=== PATIENT | male | born 1990 | race Caucasian/White ===

== ENCOUNTER 2017-03-27 15:27 | Emergency (ER) | payer OTHER ==
[~2017-03-27] VITALS: Wt 76.7 kg
[~2017-03-27 15:27] MED LIST: BENZ1TAB7 PO; MIRT-30 PO; RISP0.5T3 PO
[2017-03-27] MEDS ORDERED: morphine 4 MG/ML VIAL IM STA (16:18)
[2017-03-27] MEDS ORDERED: KETOROLAC 60 MG INJ IM STA (16:18)
[2017-03-27] MEDS ORDERED: BENZTROPINE 2 MG INJ IM ONE (17:00)
[2017-03-27] MEDS ORDERED: OLANZAPINE 5 MG TAB PO ONE (17:30)
[2017-03-27 18:07] VITALS: BP 129/79; PULSE 71; RESP 18
[2017-03-27] MEDS ORDERED: METH500T PO (18:13)
[2017-03-27] MEDS ORDERED: BENZ0.5T3 PO (18:13)
[2017-03-27] MEDS ORDERED: NAPR-688 PO (18:13)
--- NOTE | 2017-03-27 18:22 | ERD ---
ER Documentation Chief Complaint Chief Complaint spasms neck and arms today, denies vomiting, drug use HPI 26-year-old male presents emergency room with neck pain and spasm that began today. He is a coming by his father. Patient has a history of schizophrenia he did not bring the medication he is taking but is taking 1 medication. Denies any recent trauma to the area. States that this is happened before and it resolved on its own. He has no current thoughts of suicidal homicidal ideation. Is not hearing voices and he feels otherwise well. ROS All systems reviewed and are negative except as per history of present illness. Medications Home Meds Active Scripts Benztropine Mesylate* (Benztropine Mesylate*) 0.5 Mg Tablet, 0.5 MG PO TID for ANXIETY, #10 TAB Prov:BREANARUDY DO 03/27/17 Naproxen* (Naproxen*) 500 Mg Tablet, 500 MG PO BID, #14 TAB Prov:BREANARUDY DO 03/27/17 Methocarbamol* (Robaxin*) 500 Mg Tab, 500 MG PO Q8, #14 TAB Prov:BREANARUDY DO 03/27/17 Reported Medications Benztropine Mesylate* (Benztropine Mesylate*) 1 Mg Tablet, 1 MG PO BID, TAB 01/06/15 Mirtazapine* (Remeron*) 15 Mg Tab, 15 MG PO HS, TAB 01/06/15 Risperidone* (Risperidone*) 0.5 Mg Tablet, 0.5 MG PO QHS, TAB 01/06/15 Allergies Allergies: Coded Allergies: No Known Drug Allergies (Verified Allergy, Unknown, 01/06/15) PMhx/Soc Medical and Surgical Hx: pt denies Medical Hx, pt denies Surgical Hx History of Surgery: No Anesthesia Reaction: No Hx Neurological Disorder: No Hx Respiratory Disorders: No Hx Cardiac Disorders: No Hx Psychiatric Problems: Yes (unable to obtain, patient is a poor historian) Hx Miscellaneous Medical Probl: No Hx Alcohol Use: No Hx Substance Use: No Hx Tobacco Use: No Smoking Status: Never smoker Physical Exam Vitals Vital Signs Date Time Temp Pulse Resp B/P Pulse Ox O2 Delivery O2 Flow Rate FiO2 03/27/17 18:07 71 18 129/79 97 Room Air 03/27/17 15:35 97.6 77 18 135/81 97 Physical Exam Const: [] No acute distress Head: Atraumatic Eyes: Normal Conjunctiva ENT: Normal External Ears, Nose and Mouth. Neck: Full range of motion with only mild pain, right trapezius muscle spasm as well as right paraspinal muscle spasm, no deformities or midline tenderness. Skin: No petechiae or rashes Back: No midline or flank tenderness Ext: No cyanosis, or edema Neur: Awake and alert and oriented 3, no focal deficits, 5 out of 5 strength bilateral hands. Psych: Normal Mood and Affect Results 24 hrs Current Medications Medications (Trade) Dose Ordered Sig/Marlene Route PRN Reason Start Time Stop Time Status Last Admin Dose Admin Morphine Sulfate (morphine) 4 mg ONCE STAT IM 03/27/17 16:18 03/27/17 16:20 DC 03/27/17 16:23 Ketorolac Tromethamine (Toradol) 60 mg ONCE STAT IM 03/27/17 16:18 03/27/17 16:20 DC 03/27/17 16:23 Benztropine Mesylate (Cogentin) 2 mg ONCE ONCE IM 03/27/17 17:00 03/27/17 17:01 DC 03/27/17 17:09 Olanzapine (Zyprexa) 10 mg ONCE ONCE PO 03/27/17 17:30 03/27/17 17:31 DC 03/27/17 17:33 Procedures/MDM Muscle spasm of neck as well as possible dystonic reaction of akathisia. Patient appeared calm at first. He did have an episode where he said he felt really antsy and was moving both his arms and his legs. The morphine and Toradol IM helped relieve his neck spasm. I then gave him a dose of Cogentin 2 mg IM which resolved his other symptoms. Is feeling well. I have very low suspicion for any serotonin syndrome no suicidal homicidal ideations, no suspicion for neuroleptic malignant syndrome and low suspicion for neck fracture. Is asymptomatic and we will discharge with his father with Robaxin, naproxen as well as Cogentin as needed anxiety. Also stating he should see his doctor that is prescribed his medications within the next 2 days. Departure Diagnosis: Primary Impression: Muscle spasms of neck Condition: Stable Patient Instructions: Drug Reaction, Dystonic, Neck Spasm, No Trauma Additional Instructions: Call your primary care doctor TOMORROW for an appointment during the next 2-3 days.See the doctor sooner or return here if your condition worsens before your appointment time. RUDY TOUSSAINT DO Mar 27, 2017 18:22
== END 2017-03-27 18:24 | disposition home or self-care (01) ==
LOC: E/R 15:27
DX: M62.838 Other muscle spasm (principal)
CPT/HCPCS: 96372; J0515; J1885; J2270; Z7502; Z7610

== ENCOUNTER 2017-06-12 17:08 | Emergency (ER) | END 2017-06-12 17:51 | disposition home or self-care (01) ==